=== PATIENT | male | born 1980 | race Caucasian/White ===

== ENCOUNTER 2017-02-12 17:36 | Emergency (ER) | payer MEDICARE, OTHER | END 2017-02-12 18:16 | disposition home or self-care (01) | LOC: FER 17:36 | DX: Z00.8 Encounter for other general examination (principal); Z53.20 Procedure and treatment not carried out because of patient's decision for unspecified reasons ==

== ENCOUNTER 2017-05-19 13:06 | Emergency (ER) | payer MEDICARE ==
[2017-05-19 13:58] LABS: BASOPHIL 0.2 % (0-2); EOSINOPHIL 0.6 % (0-5); HCT 43.6 % (42.0-52.0); HGB 15.1 g/dl (13.2-18.0); LYMPHOCYTE 24.8 % (15-48); MCH 31.3 pg (25.0-31.0); MCHC 34.6 g/dL (32.0-36.0); MCV 90.3 fL (78.0-100.0); MONOCYTE 7.1 % (0-12); NEUTROPHIL 67.3 % (41-80); PLT 205 K/uL (150-400); RBC 4.83 M/uL (4.70-6.00); RDW 13.5 % (11.5-14.0); WBC 8.5 K/uL (4.0-10.5)
[2017-05-19 14:12] LABS: ALBUMIN 4.6 g/dL (3.5-5.0); BILIRUBIN - TOTAL 0.4 mg/dL (0.1-1.0); CREATININE 0.9 mg/dL (0.7-1.2); GLOBULIN (CALCULATION) 3.2 g/dL (2.2-4.2); POTASSIUM 4.5 mmol/L (3.5-5.1); TOTAL PROTEIN 7.8 g/dL (6.4-8.3)
[2017-05-19 14:23] LABS: BILIRUBIN 1+ mg/dL (NEGATIVE); BLOOD NEGATIVE Ery/uL (NEGATIVE); CLARITY CLEAR (CLEAR); COLOR YELLOW (YELLOW); GLUCOSE (U) NORMAL (NORMAL); KETONE (U) 1+ (SMALL) mg/dL (NEGATIVE); LEUKOCYTES NEGATIVE Leu/uL (NEGATIVE); NITRITE NEGATIVE (NEGATIVE); PROTEIN NEGATIVE (NEGATIVE); SPECIFIC GRAVITY 1.025 (1.001-1.030); UROBILINOGEN 0.2 mg/dL (0.2-1.0)
[2017-05-19 14:30] LABS: AMPHETAMINES NEGATIVE (NEGATIVE); BARBITURATES NEGATIVE (NEGATIVE); BENZODIAZEPINES NEGATIVE (NEGATIVE); COCAINE NEGATIVE (NEGATIVE); MARIJUANA (THC) NEGATIVE (NEGATIVE); METHADONE NEGATIVE (NEGATIVE); TRICYCLIC ANTIDEPRESSANT NEGATIVE (NEGATIVE)
== END 2017-05-19 16:53 | disposition home or self-care (01) ==
LOC: FER 13:06
PROVIDERS: Internal Medicine
DX: F20.9 Schizophrenia, unspecified (principal); F17.200 Nicotine dependence, unspecified, uncomplicated; Z79.899 Other long term (current) drug therapy
CPT/HCPCS: 36415; 80053; 80164; 80178; 80305; 81003; 85025; 99285

== ENCOUNTER 2020-10-29 20:44 | Emergency (ER) | payer OTHER ==
[~2020-10-29 20:44] MED LIST: ARTANE2 MG PO; EFFEXOR-XR 75 M75 MG PO; ELIQUIS2.5 MG PO; FLEXERIL5 MG PO; KEFLEX500 MG PO; NORCO 5-325 TA1 EACH PO; VRAYLAR3 MG PO; XARELTO20 MG PO; ZOFRAN8 MG PO
[2020-10-29 22:50] LABS: BASOPHIL 0.7 % (0-2); EOSINOPHIL 1.3 % (0-5); HCT 43.5 % (42.0-52.0); HGB 14.2 g/dl (13.2-18.0); LYMPHOCYTE 30.9 % (15-48); MCH 30.5 pg (25.0-31.0); MCHC 32.6 g/dL (32.0-36.0); MCV 93.5 fL (78.0-100.0); MONOCYTE 6.5 % (0-12); MPV 8.8 fL (6.0-9.5); NEUTROPHIL 60.3 % (41-80); NRBC 0; PLT 273 K/uL (150-400); RBC 4.65 M/uL (4.70-6.00); RDW 14.5 % (11.5-14.0); WBC 11.8 K/uL (4.0-10.5)
[2020-10-29 23:14] LABS: ALBUMIN 3.5 g/dL (3.4-5.0); ALKALINE PHOSHATASE 62 U/L (46-116); ALT 19 U/L (16-63); AST 11 U/L (15-37); BILIRUBIN - TOTAL 0.1 mg/dL (0.2-1.0); BUN 20 mg/dL (7-18); BUN/CREAT RATIO (CALC) 17.9 RATIO; CHLORIDE 103 mmol/L (98-107); CO2 (BICARBONATE) 31 mmol/L (21-32); CREATININE 1.12 mg/dL (0.67-1.17); GLOBULIN (CALCULATION) 3.6 g/dL; GLUCOSE 93 mg/dL (74-106); POTASSIUM 3.9 mmol/L (3.5-5.1); TOTAL PROTEIN 7.1 g/dL (6.4-8.2)
[2020-10-30 00:08] LABS: BILIRUBIN NEGATIVE (NEGATIVE); BLOOD NEGATIVE Ery/uL (NEGATIVE); CLARITY CLEAR (CLEAR); COLOR YELLOW (YELLOW); GLUCOSE (U) NORMAL (NORMAL); LEUKOCYTES NEGATIVE Leu/uL (NEGATIVE); NITRITE NEGATIVE (NEGATIVE); PROTEIN NEGATIVE (NEGATIVE); SPECIFIC GRAVITY 1.025 (1.001-1.030); UROBILINOGEN 0.2 mg/dL (0.2-1.0); pH 6.5 (5.0-9.0)
[2020-10-30 00:10] LABS: AMPHETAMINES NEGATIVE (NEGATIVE); BARBITURATES NEGATIVE (NEGATIVE); ECSTASY (MDMA) NEGATIVE (NEGATIVE); MARIJUANA (THC) NEGATIVE (NEGATIVE); METHADONE NEGATIVE (NEGATIVE); OPIATES NEGATIVE (NEGATIVE); OXYCODONE NEGATIVE (NEGATIVE)
== END 2020-10-30 01:45 | disposition other institution (70) ==
LOC: FER 20:44
PROVIDERS: Emergency Medicine
DX: R45.851 Suicidal ideations (principal); F20.9 Schizophrenia, unspecified; F31.9 Bipolar disorder, unspecified; Z79.899 Other long term (current) drug therapy; Z20.822 Contact with and (suspected) exposure to COVID-19
CPT/HCPCS: 36415; 80053; 80305; 81003; 85025; 99285; G0480; U0002

== ENCOUNTER 2020-11-19 00:58 | Day surgery (SDCO) | payer OTHER ==
[~2020-11-19] VITALS: Ht 175.3 cm; Wt 90.9 kg
[2020-11-19 01:15] LABS: BASOPHIL 0.9 % (0-2); EOSINOPHIL 1.1 % (0-5); HCT 42.7 % (42.0-52.0); HGB 14.2 g/dl (13.2-18.0); LYMPHOCYTE 31.7 % (15-48); MCH 30.5 pg (25.0-31.0); MCHC 33.3 g/dL (32.0-36.0); MCV 91.8 fL (78.0-100.0); MONOCYTE 5.6 % (0-12); MPV 9.7 fL (6.0-9.5); NEUTROPHIL 60.4 % (41-80); NRBC 0; PLT 259 K/uL (150-400); RBC 4.65 M/uL (4.70-6.00); RDW 14.1 % (11.5-14.0); WBC 9.2 K/uL (4.0-10.5)
[2020-11-19 01:41] LABS: ACETAMINOPHEN (TYLENOL) <2.0 ug/mL (10.0-30.0); ALBUMIN 3.7 g/dL (3.4-5.0); ALKALINE PHOSHATASE 59 U/L (46-116); ALT 21 U/L (16-63); AST 23 U/L (15-37); BILIRUBIN - TOTAL 0.2 mg/dL (0.2-1.0); BUN 12 mg/dL (7-18); BUN/CREAT RATIO (CALC) 14.6 RATIO; CHLORIDE 103 mmol/L (98-107); CO2 (BICARBONATE) 25 mmol/L (21-32); CREATININE 0.82 mg/dL (0.67-1.17); GLOBULIN (CALCULATION) 3.3 g/dL; GLUCOSE 143 mg/dL (74-106); POTASSIUM 3.8 mmol/L (3.5-5.1)
[2020-11-19 02:57] LABS: BILIRUBIN NEGATIVE (NEGATIVE); BLOOD NEGATIVE Ery/uL (NEGATIVE); CLARITY CLEAR (CLEAR); COLOR YELLOW (YELLOW); GLUCOSE (U) NORMAL (NORMAL); LEUKOCYTES NEGATIVE Leu/uL (NEGATIVE); NITRITE NEGATIVE (NEGATIVE); PROTEIN NEGATIVE (NEGATIVE); SPECIFIC GRAVITY 1.025 (1.001-1.030); UROBILINOGEN 0.2 mg/dL (0.2-1.0)
[2020-11-19 02:58] LABS: BARBITURATES NEGATIVE (NEGATIVE); ECSTASY (MDMA) NEGATIVE (NEGATIVE); MARIJUANA (THC) NEGATIVE (NEGATIVE); METHADONE NEGATIVE (NEGATIVE); OPIATES NEGATIVE (NEGATIVE)
[2020-11-19 02:59] LABS: AMPHETAMINES NEGATIVE (NEGATIVE); OXYCODONE NEGATIVE (NEGATIVE)
--- NOTE | 2020-11-19 09:50 | NUR ---
CALL PLACED TO [facility] FOR MEDICATION HISTORY. SPOKE WITH DIESEL ENGINE TESTER LIST TO BE FAXED TO [id number] ICU
--- NOTE | 2020-11-19 11:24 | NUR ---
ATTEMPTED TO MEET WITH PT. MAXIME TALLEY CNA. SHE IS SITTING WITH PATIENT AND HE HAS BEEN ASLEEP SINCE COMING TO THE FLOOR.
[2020-11-19] MEDS ORDERED: SEROQUEL 100MG100 MG PO ×3 (11:59→12:00)
--- NOTE | 2020-11-19 12:04 | NUR ---
ARNOLD BORREGO, NURSE ON ICU REGARDING MR. CROW BEING AWAKE. INTERVIEWED PATIENT. HE STATED THAT HE DID NOT WANT TO STOP HIS DRUG USE IT WAS "A WAY OF LIFE". WHEN ASKED IF HE WAS TRYING TO SELF MEDICATE HE STATED NO. PT. STATED THAT HE RESIDES WITH HIS UNCLE, JUSTYNA DOHERTY, AND HIS STEP MOTHER. PT. STATES THAT HE DOES NOT WANT TO USE [facility] THEY DO NOT ACCEPT HIS INSURANCE AND HE DOESN'T WANT [facility] THEY "DRUG TEST" YOU. HE STATES THAT HE IS NOT GOING TO STOP USING DRUGS. WHEN ASKED ABOUT [facility], HE STATED THAT HE HAS BEEN TO [facility] AND DOESN'T FEEL IT DOES HIM ANY GOOD. I ADVISED HIM THAT GOING TO [facility] WOULD GIVE HIM A CHANCE TO HAVE HIS MEDICATIONS ADJUSTED AND GET THEM PRESCRIBED FOR HIM. HE STATED THAT HE STILL ISN'T INTERESTED IN GOING TO [facility]. HE STATES THAT HE WAS ON SERAQUIL, LITHIUM, HALDOL AND COGENTIN. PT. STATES THAT HE WANTS A "HAPPY HOME", "HAPPY [place]". WHEN ASKED WHAT THAT LOOKED LIKE TO HIM HE STATED WHERE NO ONE FUSSES OR DRINKS. PT. STATES THAT HIS UNCLE AND STEP MOM DRINK ALCOHOL. PT. STATES THAT HE DOES NOT HAVE A PRIMARY DOCTOR OR THERAPIST. STATED THAT HE DIDN'T WANT ONE. ADVISED PT. I WOULD LET THE DOCTOR KNOW WHAT HE TOLD ME. ADVISED DR. LAUREANO OF PT. INTERVIEW. PER DR. LAUREANO THEY ARE CALLING [facility] AT 3:00 P.M. FOR AN INTERVIEW.
== END 2020-11-19 21:45 ==
LOC: FER 00:58 → FICU 03:37
PROVIDERS: Emergency Medicine Emergency Medical Services; ADMIT Allergy & Immunology Allergy
DX: T43.592A Poisoning by other antipsychotics and neuroleptics, intentional self-harm, initial encounter (principal); F20.9 Schizophrenia, unspecified; F31.9 Bipolar disorder, unspecified; F41.9 Anxiety disorder, unspecified; F10.10 Alcohol abuse, uncomplicated; F14.10 Cocaine abuse, uncomplicated; F17.210 Nicotine dependence, cigarettes, uncomplicated; Z86.718 Personal history of other venous thrombosis and embolism; Z81.8 Family history of other mental and behavioral disorders; Z91.14 Patient's other noncompliance with medication regimen; Z79.899 Other long term (current) drug therapy; Z88.8 Allergy status to other drugs, medicaments and biological substances; Z20.822 Contact with and (suspected) exposure to COVID-19; Y90.0 Blood alcohol level of less than 20 mg/100 ml
CPT/HCPCS: 36415; 80053; 80305; 81003; 85025; 93005; G0378; G0480; J1885; J2060; J7030; U0002

== ENCOUNTER 2020-12-08 22:20 | Emergency (ER) | payer OTHER ==
[~2020-12-08 22:20] MED LIST changes: +SEROQUEL 100MG100 MG PO
[2020-12-09 00:07] LABS: BASOPHIL 0.7 % (0-2); EOSINOPHIL 0.7 % (0-5); HCT 44.4 % (42.0-52.0); LYMPHOCYTE 38.2 % (15-48); MCH 31.3 pg (25.0-31.0); MCHC 33.8 g/dL (32.0-36.0); MCV 92.5 fL (78.0-100.0); MONOCYTE 7.6 % (0-12); MPV 9.4 fL (6.0-9.5); NEUTROPHIL 52.7 % (41-80); NRBC 0; PLT 219 K/uL (150-400); RDW 13.4 % (11.5-14.0); WBC 8.7 K/uL (4.0-10.5)
[2020-12-09 02:03] LABS: CORONAVIRUS 2019 SARS-COV-2 NEGATIVE (NEGATIVE); INFLUENZA A NAA NEGATIVE (NEGATIVE)
== END 2020-12-09 03:06 ==
LOC: FER 22:20
PROVIDERS: Student in an Organized Health Care Education/Training Program
DX: R45.851 Suicidal ideations (principal); I10 Essential (primary) hypertension; F17.210 Nicotine dependence, cigarettes, uncomplicated; Z91.5 Personal history of self-harm; Z20.822 Contact with and (suspected) exposure to COVID-19
CPT/HCPCS: 36415; 85025; 99285; U0002

== ENCOUNTER 2020-12-17 15:16 | Emergency (ER) | payer OTHER ==
[2020-12-17 17:54] LABS: BASOPHIL 0.8 % (0-2); EOSINOPHIL 0.8 % (0-5); HCT 43.8 % (42.0-52.0); HGB 15.1 g/dl (13.2-18.0); LYMPHOCYTE 22.5 % (15-48); MCH 31.1 pg (25.0-31.0); MCHC 34.5 g/dL (32.0-36.0); MCV 90.1 fL (78.0-100.0); MONOCYTE 10.1 % (0-12); MPV 9.1 fL (6.0-9.5); NEUTROPHIL 65.5 % (41-80); NRBC 0; PLT 247 K/uL (150-400); RBC 4.86 M/uL (4.70-6.00); RDW 13.2 % (11.5-14.0); WBC 10.6 K/uL (4.0-10.5)
[2020-12-17 18:19] LABS: ALBUMIN 4.3 g/dL (3.4-5.0); ALKALINE PHOSHATASE 55 U/L (46-116); ALT 24 U/L (16-63); AST 26 U/L (15-37); BILIRUBIN - TOTAL 0.6 mg/dL (0.2-1.0); BUN 15 mg/dL (7-18); BUN/CREAT RATIO (CALC) 14.6 RATIO; CHLORIDE 102 mmol/L (98-107); CO2 (BICARBONATE) 28 mmol/L (21-32); CREATININE 1.03 mg/dL (0.67-1.17); GLOBULIN (CALCULATION) 3.3 g/dL; GLUCOSE 110 mg/dL (74-106); POTASSIUM 3.7 mmol/L (3.5-5.1); TOTAL PROTEIN 7.6 g/dL (6.4-8.2)
[2020-12-17 18:20] LABS: ACETAMINOPHEN (TYLENOL) < 2.0 ug/mL (10.0-30.0)
[2020-12-17 19:37] LABS: BILIRUBIN NEGATIVE (NEGATIVE); BLOOD NEGATIVE Ery/uL (NEGATIVE); CLARITY CLEAR (CLEAR); COLOR YELLOW (YELLOW); GLUCOSE (U) NORMAL (NORMAL); LEUKOCYTES NEGATIVE Leu/uL (NEGATIVE); NITRITE NEGATIVE (NEGATIVE); PROTEIN NEGATIVE (NEGATIVE); SPECIFIC GRAVITY >=1.030 (1.001-1.030); UROBILINOGEN 0.2 mg/dL (0.2-1.0)
[2020-12-17 19:38] LABS: AMPHETAMINES NEGATIVE (NEGATIVE); BARBITURATES NEGATIVE (NEGATIVE); ECSTASY (MDMA) NEGATIVE (NEGATIVE); MARIJUANA (THC) NEGATIVE (NEGATIVE); METHADONE NEGATIVE (NEGATIVE); OPIATES NEGATIVE (NEGATIVE); OXYCODONE NEGATIVE (NEGATIVE)
== END 2020-12-18 03:01 | disposition other institution (70) ==
LOC: FER 15:16
PROVIDERS: Emergency Medicine
DX: R45.851 Suicidal ideations (principal); F17.210 Nicotine dependence, cigarettes, uncomplicated; Z20.822 Contact with and (suspected) exposure to COVID-19
CPT/HCPCS: 36415; 80053; 80305; 81003; 85025; 99285; G0480; U0002

== ENCOUNTER 2021-05-18 17:05 | Emergency (ER) | payer OTHER ==
[2021-05-18 17:54] LABS: BILIRUBIN NEGATIVE (NEGATIVE); BLOOD NEGATIVE Ery/uL (NEGATIVE); CLARITY CLEAR (CLEAR); COLOR YELLOW (YELLOW); GLUCOSE (U) NORMAL (NORMAL); LEUKOCYTES NEGATIVE Leu/uL (NEGATIVE); NITRITE NEGATIVE (NEGATIVE); PROTEIN NEGATIVE (NEGATIVE); SPECIFIC GRAVITY 1.015 (1.001-1.030); UROBILINOGEN 0.2 mg/dL (0.2-1.0)
[2021-05-18 17:54] LABS: BASOPHIL 0.7 % (0-2); EOSINOPHIL 2.7 % (0-5); HCT 41.6 % (42.0-52.0); HGB 13.5 g/dl (13.2-18.0); LYMPHOCYTE 27.8 % (15-48); MCH 30.1 pg (25.0-31.0); MCHC 32.5 g/dL (32.0-36.0); MCV 92.9 fL (78.0-100.0); MONOCYTE 8.2 % (0-12); MPV 8.9 fL (6.0-9.5); NEUTROPHIL 60.3 % (41-80); NRBC 0; PLT 303 K/uL (150-400); RBC 4.48 M/uL (4.70-6.00); WBC 9.8 K/uL (4.0-10.5)
[2021-05-18 17:59] LABS: AMPHETAMINES NEGATIVE (NEGATIVE); BARBITURATES NEGATIVE (NEGATIVE); ECSTASY (MDMA) NEGATIVE (NEGATIVE); MARIJUANA (THC) NEGATIVE (NEGATIVE); METHADONE NEGATIVE (NEGATIVE); OPIATES NEGATIVE (NEGATIVE); OXYCODONE NEGATIVE (NEGATIVE)
[2021-05-18 18:28] LABS: BUN 16 mg/dL (7-18); CHLORIDE 103 mmol/L (98-107); CO2 (BICARBONATE) 26 mmol/L (21-32); CREATININE 0.64 mg/dL (0.67-1.17); GLUCOSE 99 mg/dL (74-106); POTASSIUM 3.7 mmol/L (3.5-5.1)
== END 2021-05-19 08:19 ==
LOC: FER 17:05
PROVIDERS: Nurse Practitioner Family
DX: R45.851 Suicidal ideations (principal); I10 Essential (primary) hypertension; F20.9 Schizophrenia, unspecified; F17.210 Nicotine dependence, cigarettes, uncomplicated; Z20.822 Contact with and (suspected) exposure to COVID-19
CPT/HCPCS: 36415; 80048; 80305; 81003; 85025; 99285; G0480; U0002